=== PATIENT | male | born 1945 | race Caucasian/White ===

== ENCOUNTER 2025-06-04 07:20 | Day surgery (SDC) | payer MEDICARE, OTHER, SELFPAY ==
[2025-06-04] VITALS (15 sets, daily range): BP systolic 128–159; BP diastolic 57–88; BMI 26.5
[2025-06-04] MEDS: NSS 244 ML IV (08:20)
--- NOTE | 2025-06-04 09:22 | ITS.CL.PN ---
[employer] - Procedure Note
Procedure
Procedure Note:
CARDIAC CATHETERIZATION REPORT
Date of Procedure: 06/04/2025
Referring: Dr. Crow Muñiz MD
Indication: Newly reduced ejection fraction, preoperative risk stratification for noncardiac surgery
PROCEDURE(S)
1. left heart catheterization
2. coronary angiography
ACCESS: 6F right radial artery (closure: radial band)
CATHETERS
1. 6F JR4
2. 6F JL3.5
MODERATE SEDATION: 25 minutes of moderate sedation was utilized. An independent medical assistant dermatology was present to assist with and help manage the patient's level of consciousness and physiologic status.
HEMODYNAMIC DATA
LV 119/7 (EDP 8) mmHg
AO 124/71 (mean 87) mmHg
CORONARY ANGIOGRAPHY
Dominance: Left
LM: Large with mild nonobstructive disease.
LAD: Large vessel giving rise to a moderate caliber D1 and several small distal diagonal branches. There is a mild approximately 30% ostial stenosis and otherwise mild luminal irregularities only.
LCx: Large vessel giving rise to a very large branching OM1, small OM2, small LPL, and moderate caliber LPDA. There are mild luminal irregularities only.
RCA: Small and nondominant with mild luminal irregularities only.
RADIATION: dose 202 mGy; DAP 15.8 Gy*cm2; fluoroscopy time 2.6 min
CONCLUSIONS
1. normal LV filling pressure and no aortic stenosis
2. 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
RECOMMENDATIONS
1. primary prevention of coronary artery disease and management of nonischemic cardiomyopathy
2. no cardiovascular contraindication to noncardiac surgery based on catheterization today
Copy to: Dr. Crow Muñiz MD (outside plant supervisor)
Signed: Too Whipple MD, PhD
== END 2025-06-04 12:30 | disposition home or self-care (01) ==
LOC: CATH 07:20
PROVIDERS: ATTENDING PHYSICIAN Student in an Organized Health Care Education/Training Program; FAMILY PHYSICIAN Internal Medicine; OTHER PHYSICIAN Internal Medicine Cardiovascular Disease
DX: Z01.810 Encounter for preprocedural cardiovascular examination (principal); I42.8 Other cardiomyopathies; I25.10 Atherosclerotic heart disease of native coronary artery without angina pectoris
CPT/HCPCS: 93458; 99152; 99153; C1769; C1894; Q9967